=== PATIENT | female | born 1985 | race Hispanic/Latino ===

== ENCOUNTER 2019-04-03 19:40 | Emergency (ER) | payer OTHER | END 2019-04-03 20:41 | disposition home or self-care (01) | LOC: EDH 19:40 | DX: L03.211 Cellulitis of face (principal); F41.9 Anxiety disorder, unspecified; E11.9 Type 2 diabetes mellitus without complications; F32.9 Major depressive disorder, single episode, unspecified; Z91.041 Radiographic dye allergy status ==

== ENCOUNTER 2023-12-23 16:39 | Emergency (ER) | payer BC, OTHER ==
[~2023-12-23] VITALS: Ht 160 cm; Wt 90.7 kg
[2023-12-23 17:11] LABS: HEMATOCRIT 34.8 % (36-48); MEAN CORPUSCULAR HEMOGLOBIN 20.2 pg (27.0-33.0); MEAN CORPUSCULAR HGB CONC 30.5 g/dL (32.0-36.0); MEAN CORPUSCULAR VOLUME 66.3 fL (79-99); PLATELET COUNT (AUTO) 405 K/uL (130-400); RED BLOOD CELL COUNT(AUTO) 5.25 MIL/uL (4.00-5.50); RED CELL DISTRIBUTION WIDTH 15.8 % (11.0-15.5); WHITE BLOOD COUNT (AUTO) 9.2 K/uL (4.8-10.8)
[2023-12-23 17:17] LABS: HCG,QUALITATIVE URINE POSITIVE (NEGATIVE)
[2023-12-23 17:25] LABS: CREATININE 0.7 mg/dL (0.5-1.5)
[2023-12-23 17:28] LABS: APPEARANCE,URINE CLEAR (CLEAR); BILIRUBIN,URINE NEGATIVE (NEGATIVE); COLOR,URINE LIGHT-YELLOW (YELLOW); GLUCOSE, URINE (UA) >=1000 mg/dL (NEGATIVE); KETONES,URINE NEGATIVE (NEGATIVE); LEUKOCYTE ESTERASE ,URINE 250 Leu/uL (NEGATIVE); NITRATE,URINE NEGATIVE (NEGATIVE); OCCULT BLOOD,URINE LARGE (NEGATIVE); PH,URINE 6.5 (5.0-8.0); PROTEIN,URINE 20 mg/dL (NEGATIVE); UROBILINOGEN,URINE 0.2 mg/dL (0.2-1.0)
[2023-12-23 17:29] LABS: BILIRUBIN,TOTAL 0.2 mg/dL (0.2-1.0); TOTAL PROTEIN, SERUM 7.7 g/dL (6.0-8.3)
[2023-12-23 17:30] LABS: ADD UA MICROSCOPIC YES
[2023-12-23 17:35] LABS: BACTERIA,URINE RARE /HPF (None Seen); MUCUS,URINE RARE LPF (None Seen); RBC,URINE TNTC /HPF (0-1); SQUAMOUS EPITHELIAL CELL,UR RARE /HPF (0-2); WBC,URINE TNTC /HPF (0-1); YEAST,URINE BUDDING RARE /HPF (None Seen)
[2023-12-23] MEDS ORDERED: CEPH500T PO (19:05)
[2023-12-23 19:09] VITALS: BP 138/88; PULSE 74; RESP 18; O2SAT 97
[2023-12-23] MEDS: 0.9%NACL 1000ML 1,000 ML IV ONE (19:26)
[2023-12-23] MEDS: CEFTRIAXONE 1G VIAL IVPB ONE (19:28)
== END 2023-12-23 19:40 | disposition home or self-care (01) ==
LOC: EDH 16:39
DX: O23.41 Unspecified infection of urinary tract in pregnancy, first trimester (principal); I10 Essential (primary) hypertension; E11.9 Type 2 diabetes mellitus without complications; Z98.890 Other specified postprocedural states; Z3A.01 Less than 8 weeks gestation of pregnancy
CPT/HCPCS: 99285; 96374; 76801; 80053; 84702; 85027; 86900; 86901; 87088; 81001; 81025; 36415; J0696